=== PATIENT | male | born 2000 | race Caucasian/White ===

== ENCOUNTER 2022-02-26 19:44 | Emergency (ER) | payer OTHER ==
[2022-02-26 20:12] VITALS: BP 136/76; PULSE 110; RESP 16; TEMP 99.4; BMI 20.9
[2022-02-26] MEDS ORDERED: METHOCARBAMOL 500 MG TABLET PO ONE (20:30)
[2022-02-26] MEDS ORDERED: IBUPROFEN 600 MG TABLET (FP) PO ONE ×2 (20:30→20:34)
[2022-02-26] MEDS ORDERED: METHOCARBAMOL 500 MG TABLET ONE (20:34)
== END 2022-02-26 22:03 | disposition home or self-care (01) ==
LOC: FER 19:44
DX: S13.4XXA Sprain of ligaments of cervical spine, initial encounter (principal); V49.40XA Driver injured in collision with unspecified motor vehicles in traffic accident, initial encounter
CPT/HCPCS: 72040-TC; 99283-25